=== PATIENT | male | born 1990 | race Caucasian/White ===

== ENCOUNTER 2022-02-16 15:45 | Outpatient (CLI) | payer OTHER, SELFPAY ==
[2022-02-16 19:14] LABS: Hematocrit 49.9 % (42.0-52.0); Hemoglobin 16.4 g/dL (14.0-18.0); Mean Corpuscular HGB Conc 32.9 g/dl (32-36); Mean Corpuscular Hemoglobin 29.8 pg (26-34); Mean Corpuscular Volume 90.7 fl (80-100); Mean Platelet Volume 9.2 fl (7.4-10.4); Platelet Count Result 329 k/mm3 (150-375); Red Cell Distribution Width 12.2 % (11.5-14.5); White Blood Count 11.2 K/mm3 (4.5-10.0)
[2022-02-16 20:08] LABS: Free T4 Free Thyroxine 0.97 ng/mL (0.78-2.19)
[2022-02-16 20:12] LABS: Alanine Aminotransferase 27 U/L (6-50); Albumin Level 4.9 g/dL (3.5-5.1); Alkaline Phosphatase 82 U/L (38-126); Anion Gap 11 mmol/L (8-16); Aspartate Amino Transferase 73 U/L (17-59); Bilirubin,Total 0.8 mg/dL (0.2-1.3); Blood Urea Nitrogen 16 mg/dL (9-20); Calcium 8.7 mg/dL (8.4-10.2); Carbon Dioxide 26 mmol/L (22-30); Chloride 106 mmol/L (98-107); Cholesterol 218 mg/dL (0-200); Estimated Glomerular Filt Rate > 60; Glucose 89 mg/dL (65-110); HDL Direct 36 mg/dL; Potassium 4.1 mmol/L (3.4-5.0); Sodium 143 mmol/L (137-145); Triglycerides 309 mg/dL (<150)
[2022-02-16 20:23] LABS: LDL Cholesterol Direct 90 mg/dL
[2022-02-20 07:27] LABS: Triiodothyronine T3 Free 3.4 pg/mL (2.3-4.2)
[2022-02-21 03:22] LABS: Thyroid Peroxidase Antibodies <1 IU/mL (<9)
== END 2022-02-16 15:46 | disposition home or self-care (01) ==
LOC: ANHBWCLAB 15:49
PROVIDERS: PCP Family Medicine; Visit Provider Family Medicine
DX: E07.9 Disorder of thyroid, unspecified (principal); R00.0 Tachycardia, unspecified; Z00.00 Encounter for general adult medical examination without abnormal findings; R03.0 Elevated blood-pressure reading, without diagnosis of hypertension
CPT/HCPCS: 36415; 80053; 80061; 84439; 84443; 84481; 85027; 86376